=== PATIENT | female | born 1980 | race Two or more races ===

== ENCOUNTER → 2022-03-29 11:04 | Outpatient (BNVA) | payer OTHER, SELFPAY | PROVIDERS: PCP Internal Medicine; Visit Provider Nurse Practitioner Family | DX: G43.709 Chronic migraine without aura, not intractable, without status migrainosus (principal); G47.9 Sleep disorder, unspecified; R42 Dizziness and giddiness; H53.2 Diplopia | CPT/HCPCS: 99202 ==